=== PATIENT | male | born 1955 | race Hispanic/Latino ===

== ENCOUNTER 2018-01-09 17:27 | Emergency (ER) | payer SELFPAY ==
[2018-01-09] MEDS ORDERED: NACL 0.9% 500 ML 500 ML IV ONE (19:03)
[2018-01-09] MEDS ORDERED: NACL 0.9% 1000 ML 1,000 ML IV ONE (19:24)
[2018-01-09 19:39] LABS: Basophils # (Auto) 0.1 K/mm3 (0.0-0.1); Basophils % (Auto) 0.9 % (0.0-1.8); Eosinophils # (Auto) 0.2 K/mm3 (0.0-0.4); Hemoglobin 12.6 gm/dl (11.8-15.2); Lymphocytes # (Auto) 0.8 K/mm3 (1.2-5.4); Lymphocytes % (Auto) 10.1 % (13.4-35.0); Mean Corpuscular HGB Conc 33 % (32-34); Mean Corpuscular Hemoglobin 30 pg (28-32); Mean Corpuscular Volume 90 fl (84-94); Monocytes # (Auto) 0.6 K/mm3 (0.0-0.8); Platelet Count 241 K/mm3 (140-440); Red Blood Count 4.22 M/mm3 (3.65-5.03); Red Cell Distribution Width 16.1 % (13.2-15.2)
[2018-01-09 19:41] LABS: INR 1.15 (0.87-1.13)
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
[2018-01-09 20:07] LABS: Alanine Aminotransferase 13 units/L (7-56); Albumin 3.3 g/dL (3.9-5); BUN/Creatinine Ratio 36; Blood Urea Nitrogen 18 mg/dL (9-20); Calcium 9.9 mg/dL (8.4-10.2); Hemolysis Index 7
[2018-01-09] MEDS ORDERED: VANCOMYCIN/NS 1 GM/250 ML 1 GM/250 ML BAG IV SCH (21:00)
--- NOTE | 2018-01-09 21:29 | XRay Report ---
FINAL REPORT PROCEDURE: Right foot. TECHNIQUE: Portable three views. HISTORY: right foot pain, concern for infection COMPARISON: No prior studies are available for comparison. FINDINGS: There have been previous partial amputations of the 4th and 5th toes. Only very small portions of the proximal phalanges remain. The medial cortex of the proximal phalanx of the little toe is not sharply defined. There is a rounded lucent defect in the lateral side of the 5th metatarsal head. Osteomyelitis is possible. There is no obvious soft tissue swelling however. Clinical correlation is recommended. There is erosion or destruction involving the distal portion of the distal phalanx of the 3rd toe. This could be secondary to infection or osteonecrosis. The remaining bones appear intact. There is no definite soft tissue gas. IMPRESSION: Previous partial amputations of the 4th and 5th toes. Osteomyelitis involving the distal bones of toes 3, 4 and 5 is not excluded.
[2018-01-10 01:55] VITALS: BP 133/76
== END 2018-01-09 21:50 | disposition left against medical advice (07) ==
LOC: ED 17:27
DX: S91.301A Unspecified open wound, right foot, initial encounter (principal); M79.662 Pain in left lower leg; F17.200 Nicotine dependence, unspecified, uncomplicated; Z98.890 Other specified postprocedural states; Z85.118 Personal history of other malignant neoplasm of bronchus and lung; Z91.013 Allergy to seafood; Z86.718 Personal history of other venous thrombosis and embolism
CPT/HCPCS: 36415; 73630; 80053; 82140; 82550; 85025; 85610; 87040; 93005; 93010; 99285; J7030